=== PATIENT | female | born 1985 | race Hispanic/Latino ===

== ENCOUNTER 2017-06-04 11:32 | Emergency (ER) | payer OTHER ==
[2017-06-04 12:57] VITALS: BMI 20.7
[2017-06-04 13:30] LABS: HEMOGLOBIN 12.3 g/dL (12.0-16.0); MEAN CELL VOLUME 88.9 fl (81.0-99.0); MEAN CORPUSCULAR HEMOGLOBIN 29.8 pg (27.0-31.0); MEAN CORPUSCULAR HGB CONC 33.5 g/dL (33.0-37.0); RBC 4.13 Mil/uL (3.80-5.20); RED CELL DISTRIBUTION WIDTH 12.7 % (11.5-14.5); WHITE BLOOD COUNT 9.8 K/uL (4.8-10.8)
[2017-06-04 13:33] LABS: SQUAMOUS EPITHIAL 3 /hpf (0-5); URINE BACTERIA MANY (<OCC); URINE BILIRUBIN NEGATIVE (NEGATIVE); URINE BLOOD NEGATIVE (NEGATIVE); URINE CLARITY CLOUDY (Clear); URINE COLOR YELLOW (YELLOW); URINE GLUCOSE (UA) NEG (Normal); URINE LEUKOCYTE ESTERASE NEG Leu/uL (Negative); URINE NITRATE NEGATIVE (NEGATIVE); URINE PROTEIN NEGATIVE (NEGATIVE); URINE UROBILINOGEN 0.2-1.0 mg/dL (0.2-1.0)
[2017-06-04 13:39] LABS: CALCIUM 8.8 mg/dL (8.4-10.2); GFR AFRICAN-AMERICAN > 60; GFR NON-AFRICAN AMERICAN > 60
--- NOTE | 2017-06-04 14:12 | OBHP ---
Datetime: 06/04/2017 13:51 IP Adm Impression: , intrauterine IP Chief Complaint Other: elevated BP IP Admit Plan: Observation/Evaluation Admit Comment, IP Provider: Patient is a @ 32.5 wks with ZN=436/90 at home and in office. jose guadalupe gracia reported that she had some visual changes, otherwise no OLIVARES, no N/V, no abdominal pain, no vagin al bleeding, +FM. Pt has had a cerclage for cervical insufficiency. CMP/CBC and UA negative. Patient' s BP 120s/70-80s. Pt ruled out for pre-eclampsia. Will discharge patient home, pt to follow up in [place] 06[place]06 Pelvic Type - PN: Adequate Extremities - PN: Normal Abdomen - PN: Normal Back - PN: Normal Breast - PN: Normal Lungs - PN: Normal Heart - PN: Normal Thyroid - PN: Normal Neurologic - PN: Normal HEENT - PN: Normal General - PN: Normal FHR - Baseline A Provider: 135 Vital Signs Provider: Reviewed; Within Normal Limits NICHD Variability Prov Fetus A: Moderate 6-25bpm NICHD Accel Fetus A IP Provider: [id number] NICHD Decel Fetus A IP Provider: None Genitourinary Exam: Normal DTRs - PN: Normal
--- NOTE | 2017-06-04 14:12 | OBDCSUM ---
Datetime: 06/04/2017 13:53 Discharged to, Provider: Home Follow up at, Provider: [employer] Disch Instr Activity: Normal activity Disch Instr Diet: Regular Discharge Time: 06/04/2017 14:00 Follow up in weeks, Provider: Next scheduled appointment Disch Referrals: None Discharge Diagnosis Prov Other: elevated BPs
[2017-06-04 14:14] LABS: ALBUMIN 3.6 g/dL (3.5-5.0); ALT/SGPT 14 U/L (9-52); AST/SGOT 43 U/L (14-36); BLOOD UREA NITROGEN 8 mg/dl (7-17)
[2017-06-04 18:26] VITALS: BP 122/78; PULSE 72; RESP 18; TEMP 98.2; O2SAT 99
== END 2017-06-04 14:00 | disposition home or self-care (01) ==
LOC: H.EROB2 11:32
DX: O13.3 Gestational [pregnancy-induced] hypertension without significant proteinuria, third trimester (principal); O34.33 Maternal care for cervical incompetence, third trimester; Z3A.32 32 weeks gestation of pregnancy

== ENCOUNTER 2017-06-07 05:37 | Emergency (ER) | payer OTHER ==
[2017-06-07 07:18] LABS: BASO % 0.4 % (0.0-2.0); EOS # 0.2 K/uL (0.0-0.7); EOS % 2.5 % (0.0-4.0); HEMOGLOBIN 12.2 g/dL (12.0-16.0); LYMPH # 1.6 K/uL (1.0-4.3); LYMPH % 18.7 % (20.0-40.0); MEAN CELL VOLUME 88.3 fl (81.0-99.0); MEAN CORPUSCULAR HEMOGLOBIN 30.5 pg (27.0-31.0); MEAN CORPUSCULAR HGB CONC 34.6 g/dL (33.0-37.0); MEAN PLATELET VOLUME 10.1 fl (7.2-11.7); MONO # 0.5 K/uL (0.0-0.8); MONO % 6.1 % (0.0-10.0); NEUT % 72.3 % (50.0-75.0); RBC 3.98 Mil/uL (3.80-5.20); WHITE BLOOD COUNT 8.4 K/uL (4.8-10.8)
[2017-06-07 07:24] LABS: SQUAMOUS EPITHIAL 4 /hpf (0-5); URINE BACTERIA MANY (<OCC); URINE BILIRUBIN NEGATIVE (NEGATIVE); URINE BLOOD NEGATIVE (NEGATIVE); URINE CLARITY CLOUDY (Clear); URINE COLOR YELLOW (YELLOW); URINE GLUCOSE (UA) NEG (Normal); URINE LEUKOCYTE ESTERASE NEG Leu/uL (Negative); URINE NITRATE NEGATIVE (NEGATIVE); URINE PROTEIN NEGATIVE (NEGATIVE); URINE UROBILINOGEN 0.2-1.0 mg/dL (0.2-1.0)
[2017-06-07 07:32] LABS: ALBUMIN 3.2 g/dL (3.5-5.0); ALT/SGPT 19 U/L (9-52); AST/SGOT 15 U/L (14-36); BLOOD UREA NITROGEN 8 mg/dl (7-17); CALCIUM 8.8 mg/dL (8.4-10.2); GFR AFRICAN-AMERICAN > 60; GFR NON-AFRICAN AMERICAN > 60; URIC ACID 2.8 mg/Dl (2.2-7.5)
--- NOTE | 2017-06-07 08:13 | OBHP ---
Datetime: 06/07/2017 06:43 IP Adm Impression: , intrauterine IP Admit Plan: Observation/Evaluation; Discharge home Admit Comment, IP Provider: 32 yo at 33+1 wks w/ EDC 07/25/2017 seen last week for elevated BP and sent home from [facility], reports that she has a OLIVARES this am that started in the back of her head a nd is now in the front. Pt reports that she took her BP at home and it was 145/98 and then 170/ 105. Pt reports seeing sporkling lights a few weeks ago, denies nausea, vomiting, and upper abdominal pa in. Pt reports lower abdominal pain since yesterday, denies dysuria. Pt denies LOF, VB and reports F M. Pt's mom reports that she feels her daughter is anxious regarding this because it is he r last and it is her 1st girl. Pt's mom states that pt has had a therapist in the past and it may help her to speak to someone about her fears w/ this . 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 Rec that she see a therapist. Rec that she f/u w/ Dr. Morejon next week and pt given PTL and PEC precautions. Extremities - PN: Normal Abdomen - PN: Normal Back - PN: Normal Lungs - PN: Normal Heart - PN: Normal Neurologic - PN: Normal General - PN: Normal FHR - Baseline A Provider: 140's Membranes, Provider: Intact Contraction Comments Provider: None EGA AdmitDate IP: 33.1 IP Chief Complaint: Signs/Symptoms Gestational HTN NICHD Variability Prov Fetus A: Moderate 6-25bpm NICHD Accel Fetus A IP Provider: [id number] FHR Category Provider Fetus A: Category I NICHD Decel Fetus A IP Provider: None Dilatation, Provider: 0 Effacement, Provider: 0 Station, Provider: -3
[2017-06-07 16:56] VITALS: BP 124/76; PULSE 91; RESP 18; TEMP 98.7
== END 2017-06-07 08:45 | disposition home or self-care (01) ==
LOC: H.EROB2 05:37 → H.EROB 07:15 → H.EROB2 08:45
DX: O13.3 Gestational [pregnancy-induced] hypertension without significant proteinuria, third trimester (principal); O26.93 Pregnancy related conditions, unspecified, third trimester; R51 Headache; Z3A.33 33 weeks gestation of pregnancy